=== PATIENT | male | born 1985 | race Caucasian/White ===

== ENCOUNTER 2021-03-04 17:16 | Emergency (ER) | payer SELFPAY ==
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
[2021-03-04 18:03] VITALS: BP 137/85; PULSE 100
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
[2021-03-04] MEDS ORDERED: Take Home: traMADol 50 MG, 4 Tab Pack PO ONE (18:33)
== END 2021-03-04 18:52 | disposition home or self-care (01) ==
LOC: VM.ED 17:16
DX: S92.321A Displaced fracture of second metatarsal bone, right foot, initial encounter for closed fracture (principal); Z72.0 Tobacco use; Z88.8 Allergy status to other drugs, medicaments and biological substances; W22.8XXA Striking against or struck by other objects, initial encounter
CPT/HCPCS: 73630; 99283; A9270